=== PATIENT | female | born 1985 | race Hispanic/Latino ===

== ENCOUNTER 2017-01-11 13:47 | Emergency (ER) | payer MEDICAID ==
[~2017-01-11] VITALS: Ht 154.9 cm; Wt 59.0 kg
[2017-01-11] MEDS ORDERED: KETOROLAC 30 MG/ML (TORADOL) 1 ML VIAL IV ONE (14:25)
[2017-01-11] MEDS ORDERED: SODIUM CHLORIDE FLUSH 10 ML SYR IV PRN ×2 (14:25)
[2017-01-11] MEDS ORDERED: LORazepam 2 MG/ML (ATIVAN) 1 ML VIAL IV ONE (14:25)
[2017-01-11] MEDS ORDERED: ONDANSETRON 2 MG/ML (Z0FRAN) 2 ML VIAL IV ONE (14:25)
[2017-01-11] MEDS ORDERED: SODIUM CHLORIDE FLUSH 3 ML SYR IV PRN (14:25)
[2017-01-11 14:30] LABS: BASOPHILS % (AUTO) 0 % (0-2); EOSINOPHILS # (AUTO) 0.3 10^3uL; EOSINOPHILS % (AUTO) 3 % (0-4); LYMPHOCYTES # (AUTO) 1.8 X10^3; MEAN CORPUSCULAR HEMOGLOBIN 29.2 PG (26.0-34.0); MEAN CORPUSCULAR HGB CONC 34.3 g/dL (31.0-37.0); MEAN CORPUSCULAR VOLUME 85 FL (80-100); MEAN PLATELET VOLUME 9.4 FL (6.0-9.5); MONOCYTES # (AUTO) 0.7 X10^3; MONOCYTES % (AUTO) 6 % (3-11); NEUTROPHILS # (AUTO) 8.5 X10^3; NEUTROPHILS % (AUTO) 75 % (51-67); PLATELET COUNT 473 10^3uL (150-450); WHITE BLOOD COUNT 11.36 10^3uL (4.0-11.0)
[2017-01-11 14:42] LABS: AMPHETAMINE SCREEN, URINE Positive (Negative); CANNABINOID SCREEN, URINE Negative (Negative); METHAMPHETAMINE SCREEN URINE S POSITIVE (NEGATIVE); OPIATE SCREEN URINE Negative (Negative); PROPOXYPHENE STAT NEGATIVE (NEGATIVE)
[2017-01-11 14:43] LABS: ALBUMIN 4.3 g/dL (3.4-5.0); ALKALINE PHOSPHATASE 190 U/L (38-126); ANION GAP 16.5 MEQ/L (3-15); BUN/CREATININE RATIO 32 (10-20); CALCULATED IONIZED CALCIUM 3.7 mg/dL (3.8-4.6); CREATINE KINASE 88 U/L (30-135); TOTAL PROTEIN 8.1 g/dL (6.4-8.5)
[2017-01-11 16:14] VITALS: BP 87/64
== END 2017-01-11 16:20 | disposition home or self-care (01) ==
LOC: ED 13:49
DX: F15.10 Other stimulant abuse, uncomplicated (principal); F17.210 Nicotine dependence, cigarettes, uncomplicated
CPT/HCPCS: 36415; 71010; 80053; 80307; 82550; 82553; 83880; 84484; 85025; 85610; 85730; 93005; 96361; 96374; 96375; 99285; G0480; J1885; J2060; J2405; J7030; 80320; 93010; 99284

== ENCOUNTER 2017-02-09 14:37 | Emergency (ER) | payer MEDICAID ==
[~2017-02-09] VITALS: Ht 154.9 cm; Wt 59.0 kg
--- NOTE | 2017-02-09 14:55 | NUR ---
INITIAL IV SITE ROLLED AWAY. UNABLE TO OBTAIN. 2ND IV ATTEMPT ABLE TO GET BLD RETURN IMMED BUT WHEN NEEDLE RETRACTED, CATH FELL OUT. PT REFUSES IV START AT THIS TIME. DR WILLIAM NOTIFIED & IV MED ORDERS VERBALLY ORDERED IM. CL
--- NOTE | 2017-02-09 14:56 | NUR ---
DR WILLIAM IN TO SEE PT. CL
[2017-02-09] MEDS ORDERED: LORazepam 2 MG/ML (ATIVAN) 1 ML VIAL IV ONE (15:00)
[2017-02-09] MEDS ORDERED: KETOROLAC 15 MG/ML (TORADOL) 1 ML VIAL IV ONE (15:05)
--- NOTE | 2017-02-09 15:27 | NUR ---
BOTH MEDS GIVEN IM AT THIS TIME. CL
[2017-02-09 15:33] LABS: BASOPHILS % (AUTO) 0 % (0-2); EOSINOPHILS # (AUTO) 0.3 10^3uL; EOSINOPHILS % (AUTO) 3 % (0-4); LYMPHOCYTES # (AUTO) 2.5 X10^3; MEAN CORPUSCULAR HEMOGLOBIN 29.3 PG (26.0-34.0); MEAN CORPUSCULAR HGB CONC 34.1 g/dL (31.0-37.0); MEAN CORPUSCULAR VOLUME 86 FL (80-100); MEAN PLATELET VOLUME 9.2 FL (6.0-9.5); MONOCYTES # (AUTO) 0.7 X10^3; MONOCYTES % (AUTO) 6 % (3-11); NEUTROPHILS # (AUTO) 6.9 X10^3; NEUTROPHILS % (AUTO) 66 % (51-67); PLATELET COUNT 410 10^3uL (150-450); WHITE BLOOD COUNT 10.34 10^3uL (4.0-11.0)
--- NOTE | 2017-02-09 15:33 | Diagnostic Imaging Report ---
INDICATION: Chest pain. COMPARISON: 01/11/2017 FINDINGS: Single frontal view of the chest demonstrates normal heart size and pulmonary vascularity. The lungs are well aerated and clear. No large pleural effusion or pneumothorax is seen. The visualized osseous structures show no acute abnormalities. IMPRESSION: 1. No acute cardiopulmonary process. Dictated by: Dictated on workstation # [id number]
[2017-02-09 15:48] LABS: ALKALINE PHOSPHATASE 123 U/L (38-126); ANION GAP 14.2 MEQ/L (3-15); BUN/CREATININE RATIO 10 (10-20); CALCULATED IONIZED CALCIUM 4.1 mg/dL (3.8-4.6); TOTAL PROTEIN 7.3 g/dL (6.4-8.5)
[2017-02-09 21:04] VITALS: BP 114/72
== END 2017-02-09 16:13 | disposition home or self-care (01) ==
LOC: ED 14:39
DX: R07.9 Chest pain, unspecified (principal); F17.210 Nicotine dependence, cigarettes, uncomplicated
CPT/HCPCS: 36415; 71010; 80053; 84484; 85025; 85610; 85730; 93005; 96372; 99285; J1885; J2060; 93010; 99284

== ENCOUNTER → 2017-02-09 | Outpatient (CLI) | payer MEDICAID ==
[~2017-02-09] MED LIST: ALBU1.25 IH; ALBU25PO2 MC; ALBU8CC IH; AMOX250T PO; BECL8.7A5 IH; BUSP10TA95 PO; CITA20TA12 PO; CLON0.1T PO; CLON1TAB3 PO; CPR500T PO; CYCL-265 PO; DIPH25CA79 PO; FAMO-119 PO; FLUT16SP NS; IBP800T PO; IBUP-788 PO; OXYC-109 PO; OXYC15TA79 PO; OXYC20OR PO; OXYC40TA46 PO; PREN-94 PO
== END ==
LOC: EMS 11:44
DX: Z53.20 Procedure and treatment not carried out because of patient's decision for unspecified reasons (principal)